=== PATIENT | female | born 1975 | race Asian ===

== ENCOUNTER 2017-07-03 07:10 | Emergency (ER) | payer BC, MEDICAID ==
[~2017-07-03] VITALS: Ht 165.1 cm; Wt 70.3 kg
[~2017-07-03 07:10] MED LIST: CLIN-76 PO; HYDR12.5 PO; LACTIN PO; LISI40TA4 PO; SERT100T PO; SULF1TAB48 PO
[2017-07-03 07:25] VITALS: BP_SYST 110
[2017-07-03] MEDS ORDERED: IBUPROFEN 600 MG TABLET PO ONE (08:15)
[2017-07-03] MEDS ORDERED: LIDOCAINE 1% 10 MG/ML, 20 ML MDV INJ ONE (08:15)
[2017-07-03] MEDS ORDERED: BACITRACIN 1 GM OINT TP ONE (09:25)
[2017-07-03 09:28] VITALS: BP_SYST 132
== END 2017-07-03 09:28 | disposition home or self-care (01) ==
LOC: SED 07:10
DX: S61.112A Laceration without foreign body of left thumb with damage to nail, initial encounter (principal); I10 Essential (primary) hypertension; Z88.0 Allergy status to penicillin; Z88.1 Allergy status to other antibiotic agents; Z79.899 Other long term (current) drug therapy; W54.0XXA Bitten by dog, initial encounter; Y93.89 Activity, other specified; Y92.89 Other specified places as the place of occurrence of the external cause; Y99.8 Other external cause status
CPT/HCPCS: 73140-TC; 99284

== ENCOUNTER 2017-07-05 07:26 | Emergency (ER) | payer BC, MEDICAID ==
[~2017-07-05] VITALS: Ht 165.1 cm; Wt 68.0 kg
[2017-07-05 07:31] VITALS: BP_SYST 117
[2017-07-05 08:00] VITALS: BP_SYST 136
== END 2017-07-05 08:00 | disposition home or self-care (01) ==
LOC: SED 07:26
DX: S61.012D Laceration without foreign body of left thumb without damage to nail, subsequent encounter (principal); I10 Essential (primary) hypertension; Z88.0 Allergy status to penicillin; Z88.1 Allergy status to other antibiotic agents; Z79.899 Other long term (current) drug therapy; X58.XXXD Exposure to other specified factors, subsequent encounter
CPT/HCPCS: 99282

== ENCOUNTER 2020-11-16 07:35 | Emergency (ER) | payer BC, MEDICAID ==
[~2020-11-16] VITALS: Ht 162.6 cm; Wt 78.0 kg
[~2020-11-16 07:35] MED LIST changes: -CLIN-76 PO; +CLIN150C16 PO; +LISI40TA13 PO; -LISI40TA4 PO
[2020-11-16 07:40] VITALS: BP_SYST 154
--- NOTE | 2020-11-16 07:40 | NUR ---
Patient to ER bed 08 to gown for evaluation. Side rails up.
--- NOTE | 2020-11-16 07:40 | NUR ---
Pt walked in to ER with c/o bug bites to [place] x3 days. Reports she was working in the garden one afternoon and she noticed them the next day. Denies any pain at this time, reports itching. V/S stable, no acute distress noted.
--- NOTE | 2020-11-16 07:45 | NUR ---
ER Dr. Wetzel at bedside examining patient.
--- NOTE | 2020-11-16 07:50 | NUR ---
Lab at bedside for blood draw.
[2020-11-16 08:02] LABS: BASOPHILS # (AUTO) 0.1 K/uL (0.0-0.2); BASOPHILS % (AUTO) 1.1 % (0.0-2.0); EOSINOPHILS # (AUTO) 0.4 K/uL (0.0-0.4); HEMATOCRIT 40.3 % (36-48); HEMOGLOBIN 13.8 g/dL (12.0-16.0); LYMPHOCYTES # (AUTO) 1.6 K/uL (1.0-5.5); LYMPHOCYTES % (AUTO) 26.6 % (20.5-51.5); MEAN CORPUSCULAR HEMOGLOBIN 30 pg (27-31); MEAN CORPUSCULAR HGB CONC 34 % (32-36); MEAN CORPUSCULAR VOLUME 86 fL (79.0-98.0); MONOCYTES # (AUTO) 0.4 K/uL (0.0-1.0); MONOCYTES % (AUTO) 6.9 % (1.7-9.3); NEUTROPHILS # (AUTO) 3.6 K/uL (1.8-7.7); NEUTROPHILS % (AUTO) 59.4 % (40.0-70.0); PLATELET COUNT (AUTO) 312 K/uL (130-430); RED BLOOD CELL COUNT(AUTO) 4.66 MIL/uL (4.2-6.2); RED CELL DISTRIBUTION WIDTH 13.3 % (9.0-15.0)
[2020-11-16 08:17] LABS: CALCIUM 9.3 mg/dL (8.4-11.0); CREATININE 0.68 mg/dL (0.55-1.30); POTASSIUM 3.4 mmol/L (3.5-5.1)
[2020-11-16 08:20] LABS: INR 0.9 (0.8-1.2); PROTHROMBIN TIME 9.8 SECS (9.5-12.5)
[2020-11-16 08:21] LABS: ALBUMIN 3.8 g/dL (3.4-4.8); C-REACTIVE PROTEIN QUANT 0.4 mg/dL (0-0.5); TOTAL BILIRUBIN 0.7 mg/dL (0.0-1.0)
[2020-11-16] MEDS: EPINEPHrine 1 MG/ML AMP IM ONE (08:50)
[2020-11-16] MEDS: predniSONE 20 MG TABLET PO ONE (08:50)
[2020-11-16] MEDS ORDERED: PRED20TA PO (09:13)
[2020-11-16] MEDS ORDERED: CLIN150C16 PO (09:13)
--- NOTE | 2020-11-16 09:30 | NUR ---
Patient given written and verbal discharge instructions and verbalizes understanding. ER MD discussed with patient the results and treatment provided. Patient in stable condition. ID arm band removed. Rx of Clindamyacin and Prednisone given. Patient educated on pain management and to follow up with PMD. Pain Scale 0. Opportunity for questions provided and answered. Medication side effect fact sheet provided.
[2020-11-16 09:33] VITALS: BP_SYST 145
== END 2020-11-16 09:30 | disposition home or self-care (01) ==
LOC: SED 07:35
DX: L03.113 Cellulitis of right upper limb (principal); L03.114 Cellulitis of left upper limb; L03.115 Cellulitis of right lower limb; L03.116 Cellulitis of left lower limb; I10 Essential (primary) hypertension; L40.9 Psoriasis, unspecified; Z88.0 Allergy status to penicillin; Z88.1 Allergy status to other antibiotic agents; Z79.899 Other long term (current) drug therapy
CPT/HCPCS: 36415; 80053; 83605; 85025; 85610; 85730; 86140; 96372; 99283; J0171; J7512